=== PATIENT | female | born 1995 ===

== ENCOUNTER → 2018-01-08 | Outpatient (REF) | payer OTHER ==
[2018-01-08 13:56] LABS: PLATELET COUNT, AUTOMATED 296 K/uL (150-450)
== END ==
PROVIDERS: ATTEND Nurse Practitioner Family
DX: R10.9 Unspecified abdominal pain (principal)
CPT/HCPCS: 82040; 82150; 82247; 82310; 82374; 82435; 82565; 82947; 83690; 84075; 84132; 84155; 84295; 84450; 84460; 84520; 85025

== ENCOUNTER → 2018-01-10 | Outpatient (CLI) | payer OTHER ==
--- NOTE | 2018-01-10 16:07 | RADIOLOGY IMAGING REPORT ---
FACILITY: [facility] PATIENT NAME: Delia Quinn : 1995 MR: [id number] V: [id number] EXAM DATE: ORDERING PHYSICIAN: VICTORIA ALLEN TECHNOLOG[place] [facility] [place] : 1995 Visit/Account:[id number] Date of Sevice: 01/10/2018 GALLBLADDER HISTORY: Constipation midline abdomen pain COMPARISON: None. FINDINGS: Gallbladder: Unremarkable; no stones or sludge. Liver: Negative. Common duct: Normal, 4.2 mm diameter. Pancreas: Partially obscured by bowel, visualized aspects unremarkable. Right kidney: There is a mildly dilated inferior calyx of the right kidney. Right kidney measures 9. 3 cm in length Upper abdominal aorta and IVC: Patent. Ascites: None visualized. IMPRESSION: There is a mildly dilated calyx inferior pole the right kidney. Report Dictated By: Es Holder MD at 01/10/2018 4:01 PM Report E-Signed By: Es Holder MD at 01/10/2018 4:02 PM WSN:[email or web address]
== END ==
LOC: US 04:26
PROVIDERS: ATTEND Nurse Practitioner Family
DX: N28.89 Other specified disorders of kidney and ureter (principal)
CPT/HCPCS: 76705

== ENCOUNTER → 2018-06-03 | Outpatient (CLI) | payer OTHER ==
--- NOTE | 2018-06-04 11:33 | RADIOLOGY IMAGING REPORT ---
FACILITY: PATIENT NAME: Delia Quinn : 1995 MR: [id number] V: [id number] EXAM DATE: ORDERING PHYSICIAN: MICHELLE BARONE TECHNOLOGIST: Location: [facility] Patient: Delia Quinn : 1995 Visit/Account:[id number] Date of Sevice: 06/03/2018 NM THYROID UPTAKE - MULT. DE HISTORY: Hyperthyroidism TECHNIQUE: 375 microcuries I-123 were administered orally. Radioiodine uptake values were calculated at 24 hours following tracer administration. Gamma camera images were obtained of the neck in variou s orientations. COMPARISON: None FINDINGS: Thyroid radioiodine uptake at 24 hours is 45.2% (normal range 15-40 %). Thyroid radioiodine uptake at six hours is 30% (normal range 5-15% Size and shape: Normal. Homogeneity: There is less uptake seen diffusely over the right lobe compared to the left Nodules: None evident. IMPRESSION: Elevated 24-hour thyroid uptake at 45.2% Elevated six hour thyroid uptake at 30% There appears to be diffusely less uptake over the right lobe compared to the left. Correlation with thyroid ultrasound may be helpful Report Dictated By: Es Holder MD at 06/04/2018 11:25 AM Report E-Signed By: Es Holder MD at 06/04/2018 11:28 AM WSN:[email or web address]
== END ==
LOC: NUC 07:02
PROVIDERS: ATTEND Family Medicine
DX: E05.90 Thyrotoxicosis, unspecified without thyrotoxic crisis or storm (principal)
CPT/HCPCS: 78012